=== PATIENT | male | born 1990 | race Caucasian/White ===

== ENCOUNTER → 2017-05-24 | Outpatient (CLI) | payer OTHER ==
[~2017-05-24] MED LIST: CONTRAST GIVEN MC
[2017-05-24] MEDS: GADOBUTROL 7.5 MMOL/7.5 ML VIAL INT ART (13:16)
[2017-05-24] MEDS: IOHEXOL 300 MG/ML 50 ML VIAL. INT ART (13:16)
[2017-05-24] MEDS: LIDOCAINE 1% Multi-Dose 20 ML VIAL. ID (13:16)
== END | disposition home or self-care (01) ==
LOC: KCIC 12:15
DX: S43.492A Other sprain of left shoulder joint, initial encounter (principal); X58.XXXA Exposure to other specified factors, initial encounter; Y93.89 Activity, other specified; Y92.89 Other specified places as the place of occurrence of the external cause; Y99.8 Other external cause status
CPT/HCPCS: 73040; 73222; A9585; Q9967